=== PATIENT | female | born 2000 | race Hispanic/Latino ===

== ENCOUNTER 2018-05-22 06:55 | Emergency (ER) | payer SELFPAY ==
[~2018-05-22] VITALS: Ht 172.7 cm; Wt 45.4 kg
--- NOTE | 2018-05-22 08:55 | Diagnostic Imaging Report ---
History: Syncope, frontal headache Comparison studies: None Technique: Axial images were obtained from the skull base to the vertex. Coronal and sagittal reconstructions obtained from the axial data. Dose modulation, iterative reconstruction, and/or weight based adjustment of the mA/kV was utilized to reduce the radiation dose to as low as reasonably achievable. Findings: Scalp/skull: No abnormalities. No fractures, blastic or lytic lesions. Extra-axial spaces: No masses. No fluid collections. Brain sulci: Appropriate for age. Ventricles: Normal in size and configuration. No hydrocephalus. Parenchyma: No abnormal densities. No masses, hemorrhage, acute or chronic cortical vascular insults. Sellar/suprasellar region: No abnormalities Craniocervical junction: Patent foramen magnum. No Chiari one malformation. IMPRESSION: No abnormalities . Signed by: DR Sal Cui M.D. on 05/22/2018 8:52 AM
[2018-05-22 09:18] LABS: BASOPHILS % 0.6 % (0.0-1.0); EOSINOPHILS % 0.1 % (0.0-6.0); HEMOGLOBIN 7.4 g/dL (12.0-16.0); LYMPHOCYTES # (AUTO) 0.9 (1.0-3.2); LYMPHOCYTES % 12.6 % (18.0-39.1); MEAN CORPUSCULAR HEMOGLOBIN 16.9 pg (28-32); MEAN CORPUSCULAR HGB CONC 26.4 g/dL (31-35); MEAN CORPUSCULAR VOLUME 63.8 fL (81-99); MONOCYTES # (AUTO) 0.4 (0.2-0.8); MONOCYTES % 6.1 % (4.4-11.3); NEUTROPHILS # (AUTO) 5.8 (2.1-6.9); NEUTROPHILS % 80.5 % (38.7-80.0); PLATELET COUNT 194 x10e3/uL (140-360); RED BLOOD COUNT 4.39 x10e6/uL (3.6-5.1); RED CELL DISTRIBUTION WIDTH 22.7 % (11.7-14.4)
[2018-05-22] MEDS ORDERED: SODIUM CHLORIDE 0.9% 1000ML 1,000 ML ONE (09:29)
[2018-05-22] MEDS ORDERED: SODIUM CHLORIDE 0.9% 1000ML 1,000 ML IV SCH (09:30)
[2018-05-22 09:31] LABS: ALANINE AMINOTRANSFERASE 10 IU/L (0-55); ALBUMIN 4.1 g/dL (3.5-5.0); ALKALINE PHOSPHATASE 67 IU/L (40-150); ANION GAP 11.8 mmol/L (8-16); BLOOD UREA NITROGEN 8 mg/dL (7-26); BUN/CREATININE RATIO 13 (6-25); CALCIUM 8.4 mg/dL (8.4-10.2); CARBON DIOXIDE 23 mmol/L (22-29); CHLORIDE 106 mmol/L (98-107); CREATININE, SERUM 0.63 mg/dL (0.57-1.11); EST GLOMERULAR FILTRATION RATE > 60 ML/MIN (60-); GLUCOSE 97 mg/dL (74-118); POTASSIUM 3.8 mmol/L (3.5-5.1); SODIUM 137 mmol/L (136-145)
[2018-05-22] MEDS ORDERED: FERROUS SULFAT325 M1 PO (09:38)
[2018-05-22 09:44] LABS: HCG,QUANTITATIVE < 1.20 mIU/mL (0-10)
[2018-05-22 09:44] LABS: BILIRUBIN,URINE NEGATIVE (NEGATIVE); CLARITY,URINE TURBID (CLEAR); COLOR,URINE RED (YELLOW); KETONES,URINE NEGATIVE (NEGATIVE); LEUKOCYTE ESTERASE ,URINE NEGATIVE (NEGATIVE); NITRITE,URINE NEGATIVE (NEGATIVE); PROTEIN,URINE DIPSTICK 2+ (NEGATIVE); URINE UROBILINOGEN 0.2 mg/dL (0.2 - 1)
[2018-05-22 09:45] LABS: EPITHELIAL CELLS,URINE RARE /LPF; RBC,URINE >50 /HPF (0-5); YEAST,URINE RARE
[2018-05-22 09:59] VITALS: BP 106/66
[2018-05-22 10:01] LABS: CREATINE KINASE 114 IU/L (29-168)
[2018-05-22 10:37] LABS: ANISOCYTOSIS SLIG; HYPOCHROMASIA MODERATE; POIKILOCYTOSIS SLIG; RBC MORPHOLOGY COMMENT NORMAL
[2018-05-22 10:38] LABS: PLATELET ESTIMATE ADEQUATE; PLATELET MORPHOLOGY COMMENT FEW LARGE
== END 2018-05-22 10:37 | disposition home or self-care (01) ==
LOC: ER 06:55
DX: R55 Syncope and collapse (principal); R53.1 Weakness; D50.0 Iron deficiency anemia secondary to blood loss (chronic)
CPT/HCPCS: 36415; 70450; 80053; 81001; 82550; 82948; 84702; 85025; 93005; 99284; J7030